=== PATIENT | female | born 1995 | race Caucasian/White ===

== ENCOUNTER 2017-03-31 22:39 | Inpatient (IN) | payer BC ==
[~2017-03-31] VITALS: Ht 172.7 cm; Wt 64.0 kg
[2017-03-31 22:58] LABS: BASOPHILS # (AUTO) 0.03 K/uL (0.00-0.20); BASOPHILS % (AUTO) 0.3 % (0.0-2.0); EOSINOPHILS # (AUTO) 0.04 K/uL (0.00-0.70); EOSINOPHILS % (AUTO) 0.41 % (1.0-6.0); HEMATOCRIT 35.9 % (36-46); LYMPHOCYTES # (AUTO) 1.9 K/uL (1.0-4.8); LYMPHOCYTES % (AUTO) 17.5 % (22.0-44.0); MEAN CORPUSCULAR HEMOGLOBIN 28.6 pg (26.0-34.0); MEAN CORPUSCULAR HGB CONC 33.5 G/dL (31.0-37.0); MEAN CORPUSCULAR VOLUME 85 fL (80-100); MONOCYTES # (AUTO) 0.6 K/uL (0.1-1.0); NEUTROPHILS % (AUTO) 75.9 % (40.0-70.0); PLATELET COUNT (AUTO) 286 K/uL (150-450); RED BLOOD CELL COUNT(AUTO) 4.22 MIL/uL (4.00-5.20); RED CELL DISTRIBUTION WIDTH 15.2 % (11.5-14.5); WHITE BLOOD COUNT (AUTO) 10.6 K/uL (4.5-11.0)
[2017-03-31 23:10] LABS: SALICYLATE 2.2 mg/dL (2.8-20.0)
[2017-03-31 23:11] LABS: ANION GAP 10 mmol/L (8-16); CALCIUM, TOTAL 8.9 mg/dL (8.8-10.5); CARBON DIOXIDE 28 mmol/L (22-29); CHLORIDE 104 mmol/L (98-107); CREATININE 0.65 mg/dL (0.60-1.30); GLOMERULAR FILTR. RATE CALC > 60 mL/min (>60); POTASSIUM 3.6 mmol/L (3.5-5.1); SODIUM SERUM 142 mmol/L (136-145); UREA NITROGEN, BLOOD 9 mg/dL (7-18)
[2017-03-31 23:14] LABS: ALANINE AMINOTRANSFERASE 17 U/L (12-78); ALBUMIN 4.3 g/dL (3.4-5.0); ASPARTATE AMINOTRANSFERASE 15 U/L (15-37); BILIRUBIN,TOTAL 0.2 mg/dL (0.1-1.0); TOTAL PROTEIN, SERUM 7.9 g/dL (6.4-8.2)
[2017-03-31 23:16] LABS: ACETAMINOPHEN 11 mcg/mL (10-30)
[2017-04-01] MEDS ORDERED: HALOPERIDOL 5 MG TABLET PO PRN (00:15)
[2017-04-01] MEDS: LORazepam 2 MG TABLET PO PRN (00:52)
[2017-04-01 10:06] VITALS: BP 111/77
[2017-04-01 16:18] VITALS: BP 118/76
[2017-04-01] MEDS: ZOLPIDEM TARTRATE 10 MG TABLET PO PRN (20:25)
[2017-04-02] MEDS ORDERED: INFLUENZA VIRUS VACCINE QVS 2017-18 (3YR+)/PF 60 MCG/0.5 ML SYRINGE IM ONE (04:00)
[2017-04-02 04:59] VITALS: BP 110/70
[2017-04-02 08:59] VITALS: BP 113/98
[2017-04-02] MEDS: LORazepam 2 MG TABLET PO PRN (15:53)
[2017-04-02 16:08] VITALS: BP 124/77
[2017-04-02] MEDS: ZOLPIDEM TARTRATE 10 MG TABLET PO PRN (21:25)
[2017-04-03 00:03] VITALS: BP 115/60
[2017-04-03 08:26] VITALS: BP 113/66
[2017-04-03] MEDS: LORazepam 2 MG TABLET PO PRN ×2 (13:40→20:06)
[2017-04-03 16:15] VITALS: BP 107/76
[2017-04-03 20:16] VITALS: BP 110/70
== END 2017-04-03 22:35 | disposition home or self-care (01) | DRG 885 ==
LOC: EMS 22:40 → EEVIPCON 22:40 → B2X 04-01 06:36
PROVIDERS: ADMIT Psychiatry & Neurology Psychiatry; ATTEND Psychiatry & Neurology Child & Adolescent Psychiatry
DX: F33.2 Major depressive disorder, recurrent severe without psychotic features (principal); R45.851 Suicidal ideations; Z91.14 Patient's other noncompliance with medication regimen; I10 Essential (primary) hypertension; T50.902A Poisoning by unspecified drugs, medicaments and biological substances, intentional self-harm, initial encounter; Z87.891 Personal history of nicotine dependence; Z91.5 Personal history of self-harm; F19.10 Other psychoactive substance abuse, uncomplicated; Z28.21 Immunization not carried out because of patient refusal
CPT/HCPCS: 99285; G0480; G0481